=== PATIENT | male | born 1960 | race Caucasian/White ===

== ENCOUNTER → 2016-10-16 | Outpatient (CLI) | payer BC ==
[~2016-10-16] MED LIST: DULCOLAX STOOL100 MG PO; NORCO 325 MG-51 TAB PO; PYRIDIUM 100MG100 MG PO; ZETIA 10MG TAB10 MG PO; [UNRECOGNIZED DRUG - OTHER] PO
== END ==
LOC: COL.RAD 13:38
DX: N32.89 Other specified disorders of bladder (principal)

== ENCOUNTER 2017-01-02 09:08 | Day surgery (SDC) | payer BC ==
[~2017-01-02] VITALS: Ht 175.3 cm; Wt 107.1 kg
[~2017-01-02 09:08] MED LIST changes: -DULCOLAX STOOL100 MG PO; -NORCO 325 MG-51 TAB PO; -PYRIDIUM 100MG100 MG PO; -[UNRECOGNIZED DRUG - OTHER] PO
[2017-01-02] MEDS ORDERED: [UNRECOGNIZED DRUG - OTHER] PO (09:50)
[2017-01-02 10:11] VITALS: BP 133/81; PULSE 55; TEMP 97.8
[2017-01-02 13:35] VITALS: BP 151/88; PULSE 77; TEMP 97.5
[2017-01-02 13:50] VITALS: BP 145/83; PULSE 69
[2017-01-02 14:05] VITALS: BP 124/94; PULSE 69
[2017-01-02 14:20] VITALS: BP 111/80; PULSE 65
== END 2017-01-02 14:40 | disposition home or self-care (01) ==
LOC: SDCO 09:08
DX: N13.1 Hydronephrosis with ureteral stricture, not elsewhere classified (principal); Z85.51 Personal history of malignant neoplasm of bladder
CPT/HCPCS: C1769; C2617; J0360; J0690; J2270; J2405; J2704; J3010; J7120

== ENCOUNTER 2017-05-22 08:39 | Day surgery (SDC) | payer BC ==
[~2017-05-22] VITALS: Ht 177.8 cm; Wt 105.8 kg
[2017-05-22] VITALS (7 sets, daily range): BP systolic 121–156; BP diastolic 74–98; PULSE 45–63; TEMP 98–98.1
[~2017-05-22 08:39] MED LIST changes: +[UNRECOGNIZED DRUG - OTHER] PO
[2017-05-22] MEDS ORDERED: PYRIDIUM 100MG100 MG PO (13:46)
[2017-05-22] MEDS ORDERED: DULCOLAX STOOL100 MG PO (13:46)
[2017-05-22] MEDS ORDERED: NORCO 325 MG-51 TAB PO (13:47)
== END 2017-05-22 14:33 | disposition home or self-care (01) ==
LOC: SDCO 08:39
DX: C67.1 Malignant neoplasm of dome of bladder (principal); J44.9 Chronic obstructive pulmonary disease, unspecified; Z87.891 Personal history of nicotine dependence
CPT/HCPCS: J0690; J1100; J2270; J2405; J2704; J3010; J7120; Q9967

== ENCOUNTER 2017-09-04 10:19 | Day surgery (SDC) | payer BC ==
[~2017-09-04] VITALS: Ht 177.8 cm; Wt 110.9 kg
[2017-09-04] VITALS (11 sets, daily range): BP systolic 117–150; BP diastolic 56–85; PULSE 50–59; TEMP 97.5–98
[~2017-09-04 10:19] MED LIST changes: +DULCOLAX STOOL100 MG PO; +NORCO 325 MG-51 TAB PO; +PYRIDIUM 100MG100 MG PO
[2017-09-05 01:24] VITALS: BP 122/51; PULSE 58; TEMP 97.7
[2017-09-05 05:51] VITALS: BP 138/62; PULSE 64; TEMP 98.1
[2017-09-05 09:42] VITALS: BP 121/68; PULSE 62; TEMP 98.1
[2017-09-05 13:49] VITALS: BP 125/72; PULSE 55; TEMP 98.3
== END 2017-09-05 17:00 | disposition home or self-care (01) ==
LOC: SDCO 10:19 → SURG 16:30 → SDCO 09-05 17:00
DX: C67.5 Malignant neoplasm of bladder neck (principal); E78.5 Hyperlipidemia, unspecified; J44.9 Chronic obstructive pulmonary disease, unspecified; M54.5 Low back pain; Z87.891 Personal history of nicotine dependence; Z88.0 Allergy status to penicillin; Z88.8 Allergy status to other drugs, medicaments and biological substances; Z85.51 Personal history of malignant neoplasm of bladder
CPT/HCPCS: OP; A9284; C1769; J0690; J2250; J2405; J2704; J3010; J7120; J9280; Q9967